=== PATIENT | male | born 1995 | race Caucasian/White ===

== ENCOUNTER 2016-09-24 15:11 | Emergency (ER) | payer BC ==
[2016-09-24 15:17] VITALS: BP 125/73
--- NOTE | 2016-09-24 15:40 | UC ---
Throat Pain/Nasal Jorgito HPI - HPI Summary HPI Summary: sore throat, fever and MILLER for 3 days. - History of Current Complaint Chief Complaint: UCGeneralIllness Stated Complaint: SORE THROAT Time Seen by Provider: 09/24/16 15:27 Hx Obtained From: Patient Onset/Duration: Sudden Onset, Lasting Days Severity: Moderate - Allergies/Home Medications Allergies/Adverse Reactions: Allergies Allergy/AdvReac Type Severity Reaction Status Date / Time No Known Allergies Allergy Verified 09/24/16 15:14 PMH/Surg Hx/FS Hx/Imm Hx Previously Healthy: Yes - Surgical History Surgical History: Yes Surgery Procedure, Year, and Place: R hip pinning - Family History Known Family History: Positive: None Negative: Hypertension - Social History Alcohol Use: None Substance Use Type: None Smoking Status (MU): Never Smoked Tobacco - Immunization History Vaccination Up to Date: Yes Review of Systems Constitutional: Fever Skin: Negative Eyes: Negative ENT: Sore Throat Respiratory: Cough Cardiovascular: Negative Gastrointestinal: Negative Genitourinary: Negative Motor: Negative Neurovascular: Negative Musculoskeletal: Negative Neurological: Headache Psychological: Negative All Other Systems Reviewed And Are Negative: Yes Physical Exam Triage Information Reviewed: Yes Appearance: Well-Nourished, Ill-Appearing, Pain Distress Vital Signs: Initial Vital Signs Temp 98.7 F 09/24/16 15:14 Pulse 126 09/24/16 15:14 Resp 16 09/24/16 15:14 BP 125/73 09/24/16 15:14 Pulse Ox 97 09/24/16 15:14 Vital Signs Reviewed: Yes Eyes: Positive: Conjunctiva Clear ENT: Positive: Pharyngeal erythema, TMs normal, Tonsillar swelling, Tonsillar exudate Dental Exam: Normal Neck exam: Normal Neck: Positive: Supple, Nontender, No Lymphadenopathy Respiratory: Positive: Chest non-tender, Lungs clear, Normal breath sounds Cardiovascular Exam: Normal Cardiovascular: Positive: No Murmur, Pulses Normal, Tachycardia Bowel Sounds: Positive: Present Musculoskeletal Exam: Normal Neurological Exam: Normal Psychological Exam: Normal Skin Exam: Normal Throat Pain/Nasal Course/Dx - Course Course Of Treatment: hx obtained, exam performed ,meds reviewed, treated for positive strep. - Differential Dx/Diagnosis Differential Diagnosis/HQI/PQRI: Otitis Media, Pharyngitis, Sinusitis, URI Provider Diagnoses: strep pharyngitis Discharge - Discharge Plan Condition: Stable Disposition: HOME Prescriptions: Amoxicillin PO (*) [Amoxicillin 875 MG (*)] 875 mg PO BID #20 tab Patient Education Materials: Strep Throat (ED) Referrals: Boom Strong DO [Primary Care Provider] - Additional Instructions: 1. Increase fluid intakes 2. take the medication as prescribed. 3. Follow up if your symtpoms are not improving, take all the medications
== END 2016-09-24 15:44 | disposition home or self-care (01) ==
LOC: UCCORT 15:11
DX: J02.0 Streptococcal pharyngitis (principal)
CPT/HCPCS: 87651; 99212; G0463

== ENCOUNTER 2018-12-10 18:15 | Emergency (ER) | payer BC ==
--- OUTSIDE RECORDS SUMMARY | 2018-12-10 18:21 | XMS REPORT | Continuity of Care Document ---
:1995 External Reference #:[id number] Author Name Boom Strong D.O. 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 Unavailable Problems Description No Active Problems Social History Type Date Description Comments Sex Unknown Tobacco Use Start: Unknown Patient is a current smoker, smokes every day Smoking Status Reviewed: 11/01/18 Patient is a current smoker, smokes every day Sun Exposure moderate amount of sun exposure Sun Exposure Uses sunscreen Seat Belt/Car Seat Seat Belt Use - Yes Bike Helmet Sometimes Guns in Home Yes, Locked Up Smoke Alarms Yes smoke alarm Allergies, Adverse Reactions, Alerts Description No Known Drug Allergies Medications Active Medications SIG Qnty Indications Ordering Provider Date Ibuprofen taking 2 tab to 4 otc Unknown 02/02/2014 200mg Tablets tab with a snack for your pain. Immunizations CPT Code Status Date Vaccine Lot # [id number] Given 01/01/2015 Influenza Virus Vaccine, Quadrivalent, Split, [id number] Preservative Free [id number] Given 12/24/2013 Influenza Virus Vaccine, Quadrivalent, Split, [id number] Preservative Free Vital Signs Date Vital Result Comment 11/01/2018 3:32pm BP Systolic 110 mmHg BP Diastolic 58 mmHg Height 73 inches 6'1" Weight 182.00 lb BMI (Body Mass Index) 24.0 kg/m2 03/01/2018 11:44am BP Systolic 118 mmHg BP Diastolic 70 mmHg Body Temperature 99.6 F Results Description No Information Available Procedures Description No Information Available Medical Devices Description No Information Available Encounters Description No Information Available Assessments Date Code Description Provider 11/01/2018 Z00.00 Encounter for general adult medical Boom Strong D.O. examination without abnormal findings 11/01/2018 Z68.24 Body mass index (BMI) 24.0-24.9, adult Boom Strong D.O. Plan of Treatment 11/01/2018 - Boom Strong D.O.Z00.00 Encounter for general adult medical examination without abnormal findingsFollow up:1-2 year DM[facility] tetanus anytime after 11/09/18Z68.24 Body mass index (BMI) 24.0-24.9, adult Functional Status Description No Information Available Mental Status Description No Information Available Referrals Description No Information Available
[2018-12-10 18:47] VITALS: BP 138/53
[2018-12-10] MEDS ORDERED: Tetan/Diph/Pertus SYR(Tdap)* 0.5 ML SYR(BOOSTRIX) use SYR contains LATEX IM ONE (19:47)
--- NOTE | 2018-12-10 19:58 | ED ---
Laceration/Wound HPI - HPI Summary HPI Summary: 23 yr old male with the complaint of left index finger laceration. Onset an hour prior to arrival. The patient cut his finger with a steam box tender type knife when he was cutting radiator hose. It was a brand new knife. He has no numbness, no weakness to finger. The patient is not sure of his last tetanus shot. - History of Current Complaint Stated Complaint: LEFT POINTER FINGER LACERATION Time Seen by Provider: 12/10/18 18:59 Pain Intensity: 0 - Allergy/Home Medications Allergies/Adverse Reactions: Allergies Allergy/AdvReac Type Severity Reaction Status Date / Time No Known Allergies Allergy Verified 12/10/18 18:47 Home Medications: Home Medications NK [No Home Medications Reported] 12/10/18 [History Confirmed 12/10/18] PMH/Surg Hx/FS Hx/Imm Hx Respiratory History: Denies: Hx Asthma - Surgical History Surgery Procedure, Year, and Place: R hip pinning Infectious Disease History: No Infectious Disease History: Denies: Traveled Outside the [place] in Last 30 Days - Family History Known Family History: Positive: None Negative: Hypertension - Social History Alcohol Use: Occasionally Substance Use Type: Reports: Marijuana Smoking Status (MU): Light Every Day Tobacco Smoker Review of Systems Constitutional: Negative Positive: Other - cut finger All Other Systems Reviewed And Are Negative: Yes Physical Exam Triage Information Reviewed: Yes Vital Signs On Initial Exam: Initial Vitals Temp Pulse Resp BP Pulse Ox 98.7 F 57 15 138/53 96 12/10/18 18:45 12/10/18 18:45 12/10/18 18:45 12/10/18 18:45 12/10/18 18:45 Vital Signs Reviewed: Yes Appearance: Positive: Well-Appearing, No Pain Distress Skin: Positive: Warm Head/Face: Positive: Normal Head/Face Inspection Eyes: Positive: EOMI ENT: Positive: Normal ENT inspection Neck: Positive: Supple Respiratory/Lung Sounds: Positive: Clear to Auscultation, Breath Sounds Present Cardiovascular: Positive: Pulses are Symmetrical in both Upper and Lower Extremities Abdomen Description: Negative: Distended Musculoskeletal: Positive: Other - left index finger with skin flap lac 2.5 cm over the lateral side. Neuro vascular intact. Neurological: Positive: Alert, Oriented to Person Place, Time Psychiatric: Positive: Normal Procedures - Splinting Left 2nd Digit Location: left index finger Pre-Made Type: metal - foam metal Splint: volar Pre-Proc Neuro Vasc Exam: normal Post-Proc Neuro Vasc Exam: normal Splint Applied by Provider: Bucky Mejia - Laceration/Wound Repair 1 Location: upper extremity Description: Irregular Length, Depth and Shape: 2.5 cm skin flap left index finger Betadine Prep?: No Irrigated w/ Saline (ccs): 300 Laceration/Wound Explored: clean, no foreign body removed Closure: SteriStrips Number of Sutures: 3 - 3 steri strips Layer Closure?: No Sterile Dressing Applied?: Yes Diagnostics - Vital Signs Vital Signs Temp Pulse Resp BP Pulse Ox 12/10/18 18:45 98.7 F 57 15 138/53 96 - Laboratory Lab Statement: Any lab studies that have been ordered have been reviewed, and results considered in the medical decision making process. Laceration Repair Course/Dx - Course Course Of Treatment: 23 yr old male with skin flap, repaired with steri strip. - Clinical Impression Provider Diagnoses: Laceration of left index finger Discharge ED - Sign-Out/Discharge Documenting (check all that apply): Patient Departure All imaging exams completed and their final reports reviewed: No Studies - Discharge Plan Condition: Good Disposition: HOME Patient Education Materials: Laceration (ED) Referrals: Boom Strong DO [Primary Care Provider] - - Billing Disposition and Condition Condition: GOOD Disposition: Home
== END 2018-12-10 20:12 | disposition home or self-care (01) ==
LOC: UCCORT 18:15
DX: S61.211A Laceration without foreign body of left index finger without damage to nail, initial encounter (principal); Z23 Encounter for immunization; W26.0XXA Contact with knife, initial encounter; Y92.9 Unspecified place or not applicable; F17.200 Nicotine dependence, unspecified, uncomplicated
CPT/HCPCS: 90471; 90715; 99212; G0463

== ENCOUNTER 2019-02-14 18:39 | Emergency (ER) | payer BC ==
[2019-02-14 19:27] VITALS: BP 123/64
--- NOTE | 2019-02-14 19:36 | UC ---
FLU HPI - HPI Summary HPI Summary: 23yo male presenting with girlfriend for fever up to 101.6, nasal congestion, chills, sore throat, and body aches since this morning. Denies ear pain. Denies n/v/d and abd pain. Normal appetite and fluid intake. Taking tylenol with some relief. States concern for strep throat. - History of Current Complaint Chief Complaint: UCGeneralIllness Stated Complaint: FLU LIKE SYMPTOMS Hx Obtained From: Patient Onset/Duration: Sudden Onset Pain Intensity: 6 Pain Scale Used: 0-10 Numeric - Allergy/Home Medications Allergies/Adverse Reactions: Allergies Allergy/AdvReac Type Severity Reaction Status Date / Time No Known Allergies Allergy Verified 02/14/19 19:27 Home Medications: Home Medications Acetaminophen [Tylenol Extra Strength] 1,000 mg PO Q4HR PRN 02/14/19 [History Confirmed 02/14/19] PMH/Surg Hx/FS Hx/Imm Hx Previously Healthy: Yes - Surgical History Surgical History: Yes Surgery Procedure, Year, and Place: R hip pinning - Family History Known Family History: Positive: None Negative: Hypertension - Social History Alcohol Use: Occasionally Substance Use Type: Marijuana Smoking Status (MU): Light Every Day Tobacco Smoker - Immunization History Vaccination Up to Date: Yes Review of Systems All Other Systems Reviewed And Are Negative: Yes Constitutional: Positive: Fever, Chills, Fatigue ENT: Positive: Sore Throat, Sinus Congestion. Negative: Ear Ache Respiratory: Positive: Cough - nonproductive. Negative: Shortness Of Breath Cardiovascular: Positive: Negative Gastrointestinal: Positive: Negative. Negative: Vomiting, Nausea Musculoskeletal: Positive: Myalgia Neurological: Positive: Headache Physical Exam Triage Information Reviewed: Yes Appearance: No Pain Distress, Ill-Appearing Vital Signs: Initial Vital Signs Temp 99.8 F 02/14/19 19:23 Pulse 86 02/14/19 19:23 Resp 16 02/14/19 19:23 BP 123/64 02/14/19 19:23 Pulse Ox 100 02/14/19 19:23 Vital Signs Reviewed: Yes Eyes: Positive: Conjunctiva Clear ENT: Positive: Hearing grossly normal, Pharyngeal erythema, Nasal congestion, TMs normal, Tonsillar swelling, Uvula midline. Negative: Tonsillar exudate, Trismus, Muffled voice, Hoarse voice Neck: Positive: Supple, Nontender, Enlarged Nodes @ - tonsilar Respiratory Exam: Normal Respiratory: Positive: Lungs clear, Normal breath sounds, No respiratory distress Cardiovascular Exam: Normal Cardiovascular: Positive: RRR. Negative: Tachycardia Neurological: Positive: Alert Psychological: Positive: Age Appropriate Behavior Skin Exam: Normal Flu Course/Dx - Course Course Of Treatment: Positive rapid strep. I treated patient with penicillin v and instructed to continue with symptomatic treatment. Instructed to follow up with pcp if symptoms persist. Patient voiced understanding and agreed with treatment plan. - Differential Dx/Diagnosis Provider Diagnosis: Strep pharyngitis Discharge ED - Sign-Out/Discharge Documenting (check all that apply): Patient Departure All imaging exams completed and their final reports reviewed: No Studies - Discharge Plan Condition: Stable Disposition: HOME Prescriptions: Penicillin VK 500 MG TAB(NF) [Penicillin VK 500 mg Tab] 500 mg PO BID #20 tab Patient Education Materials: Strep Throat (ED) Forms: *Work Release Referrals: Boom Strong DO [Primary Care Provider] - If Needed Additional Instructions: As discussed, you tested positive for strep throat today. Take penicillin as prescribed. You may take ibuprofen and/or tylenol as directed for fever and pain relief. You may use over the counter throat sprays or lozenges for symptomatic relief. Get plenty of rest and fluids. Follow up with your primary care provider if symptoms do not resolve within 7- 10 days. - Billing Disposition and Condition Condition: STABLE Disposition: Home
[2019-02-14] MEDS ORDERED: Acetaminophen TAB* 325 MG PO ONE (19:41)
[2019-02-14 19:49] LABS: Influenza A Molecular NEGATIVE (Negative); Influenza B Molecular NEGATIVE (Negative)
== END 2019-02-14 20:10 | disposition home or self-care (01) ==
LOC: UCCORT 18:39
DX: J02.0 Streptococcal pharyngitis (principal); F17.290 Nicotine dependence, other tobacco product, uncomplicated; R09.89 Other specified symptoms and signs involving the circulatory and respiratory systems; R53.83 Other fatigue; R05 Cough; R51 Headache
CPT/HCPCS: 87651; 99212; A9270-GY; G0463